=== PATIENT | male | born 1980 | race Caucasian/White ===

== ENCOUNTER 2016-08-21 18:08 | Emergency (ER) | payer OTHER ==
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
[2016-08-21] MEDS ORDERED: KETOROLAC TROMETHAMINE 60 MG/2 ML VIAL IM ONE (18:19)
[2016-08-21 18:25] VITALS: BP 163/100; PULSE 106; TEMP 98.7; BMI 36.9
[2016-08-21] MEDS ORDERED: KETOROLAC TROMETHAMINE 60 MG/2 ML VIAL ONE (18:35)
[2016-08-21] MEDS ORDERED: DIPHTH,PERTUSS(ACELL),TET 0.5 ML DISP.SYRIN IM ONE (18:50)
== END 2016-08-21 19:10 | disposition home or self-care (01) ==
LOC: FER 18:08
PROC: 3E0234Z Introduction of Serum, Toxoid and Vaccine into Muscle, Percutaneous Approach (ICD-10-PCS; principal; 2016-08-21)
PROC: 3E0233Z Introduction of Anti-inflammatory into Muscle, Percutaneous Approach (ICD-10-PCS; 2016-08-21)
DX: S20.212A Contusion of left front wall of thorax, initial encounter (principal); S00.81XA Abrasion of other part of head, initial encounter; S70.12XA Contusion of left thigh, initial encounter; W05.1XXA Fall from non-moving nonmotorized scooter, initial encounter; Y93.55 Activity, bike riding; Y92.410 Unspecified street and highway as the place of occurrence of the external cause; F17.210 Nicotine dependence, cigarettes, uncomplicated
CPT/HCPCS: 71020-TC; 71101-TC; 90471; 90715; 96372; 99283-25

== ENCOUNTER 2017-01-10 18:29 | Inpatient (IN) | payer OTHER ==
[2017-01-10 19:03] VITALS: BMI 36.9
--- NOTE | 2017-01-10 20:49 | HP ---
CIWA Score - CIWA Score Nausea/Vomitin Muscle Tremors: 4-Moderate,w/Arms Extend Anxiety: 6 Agitation: 6 Paroxysmal Sweats: 3 Orientation: 1-Uncertain about Date Tacttile Disturbances: 3-Moderate Itch/Numb/Burn Auditory Disturbances: 0-None Visual Disturbances: 3-Moderate Sensitivity Headache: 2-Mild CIWA-Ar Total Score: 31 Admission ROS BHS - HPI Chief Complaint: SEEKING DETOX TXMENT Allergies/Adverse Reactions: Allergies Allergy/AdvReac Type Severity Reaction Status Date / Time No Known Allergies Allergy Verified 01/10/17 20:20 History of Present Illness: 36 Y.O. MALE WITH OPIOID DEPENDENCE AND ALCOHOLISM ADMITTED FOR DETOX. CLIENT IS CURRENTLY TAKING SUBOXONE 20 MG/ DAILY. PRESENTS RX BOTTLE. REPORTS FIRST TIME IN TXMENT. HE IS PRESENTLY INTOXICATED, BELLIGERENT AND NOT COOPERATIVE WITH THE INTERVIEW. Exam Limitations: Intoxication - Ebola screening Have you traveled outside of the country in the last 21 days: No Have you had contact with anyone from an Ebola affected area: No Have you been sick,other than usual withdrawal symptoms: No Do you have a fever: No - Review of Systems Constitutional: Chills, Night Sweats EENT: reports: Dental Problems Respiratory: reports: No Symptoms reported Cardiac: reports: No Symptoms Reported GI: reports: Nausea, Poor Fluid Intake, Vomiting : reports: Frequency Musculoskeletal: reports: No Symptoms Reported Integumentary: reports: Flushing, Sweating Neuro: reports: No Symptoms reported Endocrine: reports: No Symptoms Reported Hematology: reports: No Symptoms Reported Psychiatric: reports: Agitated, Anxious, Disorientated Other Systems: Reviewed and Negative Patient History - Patient Medical History Hx Anemia: No Hx Asthma: Yes (ALBUTEROL) Hx Chronic Obstructive Pulmonary Disease (COPD): No Hx Cancer: No Hx Cardiac Disorders: No Hx Congestive Heart Failure: No Hx Hypertension: No Hx Hypercholesterolemia: No Hx Pacemaker: No HX Cerebrovascular Accident: No Hx Seizures: Yes (ALCOHOL RELATED) Hx Dementia: No Hx Diabetes: No Hx Gastrointestinal Disorders: No Hx Liver Disease: No Hx Genitourinary Disorders: No Hx Sexually Transmitted Disorders: No Hx Renal Disease (ESRD): No Hx Thyroid Disease: No Hx Human Immunodeficiency Virus (HIV): No Hx Hepatitis C: No Hx Depression: Yes Hx Suicide Attempt: No Hx Bipolar Disorder: No Hx Schizophrenia: No Other Medical History: DENIES - Patient Surgical History Past Surgical History: Yes Hx Orthopedic Surgery: Yes (L HAND L FOOT SX) Anesthesia Reaction: No - PPD History Previous Implant?: Yes Documented Results: Negative w/o proof Implanted On Prior [facility] Admission?: No PPD to be Administered?: Yes - Smoking Cessation Smoking history: Current every day smoker Have you smoked in the past 12 months: Yes Aproximately how many cigarettes per day: 30 Cigars Per Day: 0 Hx Chewing Tobacco Use: No Initiated information on smoking cessation: Yes 'Breaking Loose' booklet given: 01/10/17 - Substance & Tx. History Hx Alcohol Use: Yes Hx Substance Use: No Substance Use Type: Alcohol Hx Substance Use Treatment: Yes - Substances Abused LIQUOR Route: Oral Frequency: Daily Amount used: 4-6 PINTS Age of first use: 12 Date of Last Use: 01/10/17 Family Disease History - Family Disease History Family Disease History: Diabetes: Father (ALCOHOLISM), CA: Father, Other: Father , Mother (ALCOHOLISM CIRRHOSIS) Admission Physical Exam BHS - Vital Signs Vital Signs: Vital Signs - 24 hr 01/10/17 19:01 Temperature 97.8 F Pulse Rate 100 H Respiratory 18 Rate Blood Pressure 157/70 - Physical General Appearance: Yes: Moderate Distress, Intoxicated, Tremorous, Irritable, Sweating, Anxious, Other (CRYING) HEENTM: Yes: EOMI, Normocephalic, Pharynx Normal, Nasal Congestion, Rhinorrhea, Other (NASAL DEFORMITY MISSING TEETH) Respiratory: Yes: Chest Non-Tender, Lungs Clear, Normal Breath Sounds, No Respiratory Distress, No Accessory Muscle Use Neck: Yes: No masses,lesions,Nodules, Supple, Trachea in good position Breast: Yes: Breast Exam Deferred Cardiology: Yes: Regular Rhythm, S1, S2, Tachycardia Abdominal: Yes: Normal Bowel Sounds, Non Tender, Soft Genitourinary: Yes: Within Normal Limits Back: Yes: Normal Inspection Musculoskeletal: Yes: full range of Motion, Gait Steady Extremities: Yes: Normal Range of Motion, Non-Tender, Tremors, Other (L FIFTH DIGIT DEFORMITY) Neurological: Yes: bulk pigment reducer II-XII NML intact, Alert, Motor Strength 5/5 Integumentary: Yes: Warm, Moist Lymphatic: Yes: Within Normal Limits - Diagnostic (1) Alcohol dependence with uncomplicated withdrawal Current Visit: Yes Status: Chronic (2) Opioid dependence on agonist therapy Current Visit: Yes Status: Chronic (3) Nicotine dependence Current Visit: Yes Status: Chronic Qualifiers: Nicotine product type: cigarettes Substance use status: uncomplicated Qualified Code(s): F17.210 - Nicotine dependence, cigarettes, uncomplicated (4) Asthma Current Visit: Yes Status: Acute Qualifiers: Asthma severity: mild intermittent Cleared for Admission S - Detox or Rehab S Level of Care: Medically Managed Detox Regimen/Protocol: Librium BHS Breath Alcohol Content Breath Alcohol Content: 0.325 Urine Drug Screen - Results Drug Screen Negative: Yes
[2017-01-10] MEDS ORDERED: P-EPHED 60MG/TRIPROLIDI 2.5MG TABLET PO PRN (22:23)
[2017-01-10] MEDS ORDERED: MAGNESIUM CITRATE 300 ML BOTTLE PO PRN (22:23)
[2017-01-10] MEDS ORDERED: LOPERAMIDE HCL 2 MG CAPSULE PO PRN (22:23)
[2017-01-10] MEDS ORDERED: IBUPROFEN 400 MG TABLET (FP) PO PRN (22:23)
[2017-01-10] MEDS ORDERED: MENTHOL/PHENOL 1 EACH UD MM PRN (22:23)
[2017-01-10] MEDS ORDERED: NICOTINE POLACRILEX 4 MG GUM BC PRN (22:23)
[2017-01-10] MEDS ORDERED: MAGNESIUM HYDROX 2400MG/30ML ORAL SUSPENSION 30 ML CUP PO PRN (22:23)
[2017-01-10] MEDS ORDERED: ACETAMINOPHEN 325 MG TABLET (FP) PO PRN (22:23)
[2017-01-10] MEDS ORDERED: guaiFENesin/D-METHORPHAN HB 10 ML UNIT-DOSE CUPS PO PRN (22:23)
[2017-01-11] MEDS: chlordiazePOXIDE HCL 25 MG CAPSULE PO SCH ×5 (00:23→22:17)
[2017-01-11] MEDS: diphenhydrAMINE HCL 50 MG CAPSULE PO PRN ×2 (00:23→01:55)
[2017-01-11 00:37] LABS: URINE APPEARANCE CLEAR; URINE BILIRUBIN NEGATIVE (NEGATIVE); URINE BLOOD 1+ (NEGATIVE); URINE COLOR STRAW; URINE GLUCOSE (UA) NEGATIVE (NEGATIVE); URINE KETONE NEGATIVE (NEGATIVE); URINE LEUK ESTERASE NEGATIVE (NEGATIVE); URINE NITRITE NEGATIVE (NEGATIVE); URINE PROTEIN NEGATIVE (NEGATIVE); URINE UROBILINOGEN NEGATIVE mg/dL (0.2-1.0)
[2017-01-11 00:38] LABS: URINE MUCUS RARE; URINE RBC 2 /hpf (0-3); URINE WBC 1 /hpf (3-5)
[2017-01-11] MEDS ORDERED: ALBUTEROL SO4 2.5/IPRATROPIUM 0.5 INH SOL 3 ML VIAL.NEB. NEB PRN (05:31)
[2017-01-11] MEDS ORDERED: ALBUTEROL SO4 6.7 GM HFA INHALER IH PRN (08:26)
[2017-01-11 09:50] LABS: MCH 32.3 pg (25.7-33.7); MCHC 34.3 g/dl (32.0-35.9); MEAN PLT VOLUME 7.8 fl (7.5-11.1); PLATELET COUNT 150 K/MM3 (134-434); RDW 13.4 % (11.9-15.9); WHITE BLOOD COUNT 7.4 K/mm3 (4.0-10.0)
[2017-01-11] MEDS: PRENATAL VITAMINS W/ FOLIC ACID TABLET (FP) PO SCH (10:20)
[2017-01-11] MEDS: BUPRENORPHINE/NALOXONE 8 MG/2 MG FILM PACKET SL SCH ×2 (10:20→17:36)
[2017-01-11] MEDS: NICOTINE 21 MG/24 HOURS TOPICAL PATCH TD SCH (10:21)
[2017-01-11 10:23] LABS: ALBUMIN 3.4 g/dl (3.4-5.0); ALK PHOS 161 U/L (45-117); ANION GAP 8 (8-16); BILIRUBIN,TOTAL 0.7 mg/dL (0.2-1.0); CALCIUM 8.7 mg/dL (8.5-10.1); CO2 29 mmol/L (21-32); CREATININE 0.8 mg/dL (0.7-1.3); GLUCOSE,RANDOM 81 mg/dL (74-106); SGOT/AST 52 U/L (15-37); SGPT/ALT 58 U/L (12-78); TOT PROT 6.9 g/dl (6.4-8.2)
--- NOTE | 2017-01-11 12:14 | PN ---
S CIWA - CIWA Score Nausea/Vomitin Muscle Tremors: 5 Anxiety: 5 Agitation: 4-Moderately Restless Paroxysmal Sweats: 3 Orientation: 0-Oriented Tacttile Disturbances: 1-Very Mild Itch/Numbness Auditory Disturbances: 0-None Visual Disturbances: 0-None Headache: 0-None Present CIWA-Ar Total Score: 21 BHS Progress Note (SOAP) Subjective: Anxiety,tremors,sweating,interrupted sleep,restless Objective: 01/11/17 12:13 Vital Signs - 8 hr 01/11/17 01/11/17 06:25 11:12 Temperature 97.9 F 97.9 F Pulse Rate 67 84 Respiratory 20 20 Rate Blood Pressure 146/87 149/88 Laboratory Tests 01/10/17 01/11/17 01/11/17 23:42 07:50 07:50 WBC 7.4 RBC 4.53 Hgb 14.6 Hct 42.6 MCV 94.0 MCH 32.3 MCHC 34.3 RDW 13.4 Plt Count 150 MPV 7.8 Sodium 138 Potassium 3.3 L Chloride 101 Carbon Dioxide 29 Anion Gap 8 BUN 17 Creatinine 0.8 Creat Clearance w eGFR > 60 Random Glucose 81 Calcium 8.7 Total Bilirubin 0.7 AST 52 H ALT 58 Alkaline Phosphatase 161 H Total Protein 6.9 Albumin 3.4 Urine Color Straw Urine Appearance Clear Urine pH 6.0 Ur Specific [place] 1.010 Urine Protein Negative Urine Glucose (UA) Negative Urine Ketones Negative Urine Blood 1+ H Urine Nitrite Negative Urine Bilirubin Negative Urine Urobilinogen Negative Urine RBC 2 Urine WBC 1 Urine Mucus Rare labs note K+ 3.3, start k-dur Assessment: 01/11/17 12:13 Withdrawal sx Hypokalemia Plan: Continue detox
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
[2017-01-11] MEDS ORDERED: chlordiazePOXIDE HCL 25 MG CAPSULE PO ONE (14:00)
[2017-01-11] MEDS: POTASSIUM CHLORIDE TABS 20 MEQ TABLET.ER (FP) PO SCH ×2 (14:20→22:18)
[2017-01-11] MEDS ORDERED: BUPRENORPHINE/NALOXONE 2 MG/0.5 MG FILM PACKET SL SCH (22:00)
[2017-01-11] MEDS: hydrOXYzine PAMOATE 50 MG CAPSULE (FP) PO PRN (22:17)
[2017-01-11] MEDS: BUPRENORPHINE/NALOXONE 2 MG/0.5 MG FILM PACKET SL SCH (22:18)
[2017-01-11] MEDS: THIAMINE HCL 100 MG TABLET (FP) PO SCH (22:18)
[2017-01-12] MEDS: chlordiazePOXIDE HCL 25 MG CAPSULE PO SCH ×3 (05:31→17:15)
[2017-01-12] MEDS: POTASSIUM CHLORIDE TABS 20 MEQ TABLET.ER (FP) PO SCH ×2 (10:05→22:33)
[2017-01-12] MEDS: BUPRENORPHINE/NALOXONE 8 MG/2 MG FILM PACKET SL SCH ×2 (10:05→17:20)
[2017-01-12] MEDS: PRENATAL VITAMINS W/ FOLIC ACID TABLET (FP) PO SCH (10:05)
[2017-01-12] MEDS: NICOTINE 21 MG/24 HOURS TOPICAL PATCH TD SCH (10:06)
[2017-01-12] MEDS: chlordiazePOXIDE HCL 25 MG CAPSULE PO PRN (12:45)
--- NOTE | 2017-01-12 14:50 | PN ---
[facility] CIWA - CIWA Score Nausea/Vomitin-No Nausea/No Vomiting Muscle Tremors: 5 Anxiety: 5 Agitation: 4-Moderately Restless Paroxysmal Sweats: No Perspiration Orientation: 0-Oriented Tacttile Disturbances: 2-Mild Itch/Numbness/Burn Auditory Disturbances: 0-None Visual Disturbances: 3-Moderate Sensitivity Headache: 0-None Present CIWA-Ar Total Score: 19 S Progress Note (SOAP) Subjective: Interrupted Sleep, Body Aches, Tremors, Anxious. Objective: PT. A & O X 3, OBSERVED AMBULATING ON UNIT. NO ACUTE DISTRESS. 01/12/17 14:48 Vital Signs Temperature 98.4 F 01/12/17 10:31 Pulse Rate 79 01/12/17 10:31 Respiratory Rate 18 01/12/17 10:31 Blood Pressure 124/79 01/12/17 10:31 O2 Sat by Pulse Oximetry (%) Laboratory Tests 01/10/17 01/11/17 01/11/17 23:42 07:50 07:50 WBC 7.4 RBC 4.53 Hgb 14.6 Hct 42.6 MCV 94.0 MCH 32.3 MCHC 34.3 RDW 13.4 Plt Count 150 MPV 7.8 Sodium 138 Potassium 3.3 L Chloride 101 Carbon Dioxide 29 Anion Gap 8 BUN 17 Creatinine 0.8 Creat Clearance w eGFR > 60 Random Glucose 81 Calcium 8.7 Total Bilirubin 0.7 AST 52 H ALT 58 Alkaline Phosphatase 161 H Total Protein 6.9 Albumin 3.4 Urine Color Straw Urine Appearance Clear Urine pH 6.0 Ur Specific [place] 1.010 Urine Protein Negative Urine Glucose (UA) Negative Urine Ketones Negative Urine Blood 1+ H Urine Nitrite Negative Urine Bilirubin Negative Urine Urobilinogen Negative Urine RBC 2 Urine WBC 1 Urine Mucus Rare RPR Titer 01/11/17 07:50 WBC RBC Hgb Hct MCV MCH MCHC RDW Plt Count MPV Sodium Potassium Chloride Carbon Dioxide Anion Gap BUN Creatinine Creat Clearance w eGFR Random Glucose Calcium Total Bilirubin AST ALT Alkaline Phosphatase Total Protein Albumin Urine Color Urine Appearance Urine pH Ur Specific [place] Urine Protein Urine Glucose (UA) Urine Ketones Urine Blood Urine Nitrite Urine Bilirubin Urine Urobilinogen Urine RBC Urine WBC Urine Mucus RPR Titer Nonreactive LABS NOTED. Assessment: 01/12/17 14:49 WITHDRAWAL SYMPTOMS. HYPOKALEMIA. 01/12/17 14:53 Plan: CONTINUE DETOX. REPEAT UA FOR URINE BLOOD 1+. REPEAT ALK PHOS FOR ELEVATED ADMISSION VALUE. INCREASE DAILY PO FLUID INTAKE.
[2017-01-12] MEDS: ZOLPIDEM TARTRATE 10 MG TABLET (PARK CARE ONLY) PO PRN (22:33)
[2017-01-12] MEDS: THIAMINE HCL 100 MG TABLET (FP) PO SCH (22:33)
[2017-01-12] MEDS: chlordiazePOXIDE 5 MG CAPSULE PO SCH (22:33)
[2017-01-12] MEDS: BUPRENORPHINE/NALOXONE 2 MG/0.5 MG FILM PACKET SL SCH (22:33)
[2017-01-12 22:57] LABS: URINE APPEARANCE CLEAR; URINE BILIRUBIN NEGATIVE (NEGATIVE); URINE BLOOD NEGATIVE (NEGATIVE); URINE COLOR YELLOW; URINE GLUCOSE (UA) NEGATIVE (NEGATIVE); URINE KETONE NEGATIVE (NEGATIVE); URINE LEUK ESTERASE NEGATIVE (NEGATIVE); URINE NITRITE NEGATIVE (NEGATIVE); URINE PROTEIN NEGATIVE (NEGATIVE); URINE UROBILINOGEN NEGATIVE mg/dL (0.2-1.0)
[2017-01-13] MEDS: chlordiazePOXIDE HCL 25 MG CAPSULE PO PRN ×3 (01:02→14:54)
[2017-01-13] MEDS: chlordiazePOXIDE 5 MG CAPSULE PO SCH ×3 (05:49→17:43)
[2017-01-13] MEDS: MAG HYDROX/AL HYDROX/SIMETH 30 ML UNIT-DOSE CUP PO PRN (05:53)
[2017-01-13] MEDS: NICOTINE 21 MG/24 HOURS TOPICAL PATCH TD SCH (10:26)
[2017-01-13] MEDS: BUPRENORPHINE/NALOXONE 8 MG/2 MG FILM PACKET SL SCH ×2 (10:26→17:42)
[2017-01-13] MEDS: PRENATAL VITAMINS W/ FOLIC ACID TABLET (FP) PO SCH (10:26)
[2017-01-13] MEDS: POTASSIUM CHLORIDE TABS 20 MEQ TABLET.ER (FP) PO SCH ×2 (10:26→22:07)
[2017-01-13] MEDS ORDERED: cloNIDine HCL 0.1 MG TABLET PO PRN (10:41)
[2017-01-13] MEDS: hydrOXYzine PAMOATE 50 MG CAPSULE (FP) PO PRN (14:57)
--- NOTE | 2017-01-13 17:33 | PN ---
BHS Progress Note (SOAP) Subjective: Tremors (visible), chills, nausea, interrupted sleep Objective: 01/13/17 17:29 Last Vital Signs Temp Pulse Resp BP Pulse Ox 97.6 F 84 18 120/72 01/13/17 13:41 01/13/17 13:41 01/13/17 13:41 01/13/17 13:41 Laboratory Tests 01/10/17 01/11/17 01/11/17 23:42 07:50 07:50 WBC 7.4 RBC 4.53 Hgb 14.6 Hct 42.6 MCV 94.0 MCH 32.3 MCHC 34.3 RDW 13.4 Plt Count 150 MPV 7.8 Sodium 138 Potassium 3.3 L Chloride 101 Carbon Dioxide 29 Anion Gap 8 BUN 17 Creatinine 0.8 Creat Clearance w eGFR > 60 Random Glucose 81 Calcium 8.7 Total Bilirubin 0.7 AST 52 H ALT 58 Alkaline Phosphatase 161 H Total Protein 6.9 Albumin 3.4 Urine Color Straw Urine Appearance Clear Urine pH 6.0 Ur Specific [place] 1.010 Urine Protein Negative Urine Glucose (UA) Negative Urine Ketones Negative Urine Blood 1+ H Urine Nitrite Negative Urine Bilirubin Negative Urine Urobilinogen Negative Urine RBC 2 Urine WBC 1 Urine Mucus Rare RPR Titer 01/11/17 01/12/17 01/13/17 07:50 22:45 07:30 WBC RBC Hgb Hct MCV MCH MCHC RDW Plt Count MPV Sodium Potassium Chloride Carbon Dioxide Anion Gap BUN Creatinine Creat Clearance w eGFR Random Glucose Calcium Total Bilirubin AST ALT Alkaline Phosphatase 161 H Total Protein Albumin Urine Color Yellow Urine Appearance Clear Urine pH 7.0 Ur Specific [place] 1.020 Urine Protein Negative Urine Glucose (UA) Negative Urine Ketones Negative Urine Blood Negative Urine Nitrite Negative Urine Bilirubin Negative Urine Urobilinogen Negative Urine RBC Urine WBC Urine Mucus RPR Titer Nonreactive Labs noted: K 3.3, UA: 1+ blood Assessment: 01/13/17 17:30 Withdrawal symptoms, noted with visible tremors Noted with hypokalemia and microscopic hematuria Plan: Continue detox: (visible tremors) patient encouraged to request prn librium and vistaril, ordered for clonidine 0.1mg PO q8hr prn Hypokalemia: continue PO potassium supplement Microscopic hematuria: encouraged to drink lots of water, repeat UA
[2017-01-13] MEDS: BUPRENORPHINE/NALOXONE 2 MG/0.5 MG FILM PACKET SL SCH (22:06)
[2017-01-13] MEDS: THIAMINE HCL 100 MG TABLET (FP) PO SCH (22:06)
[2017-01-13] MEDS: ZOLPIDEM TARTRATE 10 MG TABLET (PARK CARE ONLY) PO PRN (22:07)
[2017-01-13] MEDS: chlordiazePOXIDE HCL 10 MG CAPSULE PO SCH (22:07)
[2017-01-14] MEDS: diphenhydrAMINE HCL 50 MG CAPSULE PO PRN (01:13)
[2017-01-14] MEDS: hydrOXYzine PAMOATE 50 MG CAPSULE (FP) PO PRN ×2 (01:13→09:47)
[2017-01-14] MEDS: chlordiazePOXIDE HCL 10 MG CAPSULE PO SCH ×2 (05:18→10:35)
[2017-01-14 06:00] VITALS: BP 110/74; PULSE 88; TEMP 96.9
[2017-01-14] MEDS: MAG HYDROX/AL HYDROX/SIMETH 30 ML UNIT-DOSE CUP PO PRN (06:38)
[2017-01-14] MEDS: PRENATAL VITAMINS W/ FOLIC ACID TABLET (FP) PO SCH (09:47)
[2017-01-14] MEDS: NICOTINE 21 MG/24 HOURS TOPICAL PATCH TD SCH (09:48)
[2017-01-14] MEDS: BUPRENORPHINE/NALOXONE 8 MG/2 MG FILM PACKET SL SCH (09:49)
[2017-01-14 09:51] LABS: URINE APPEARANCE CLEAR; URINE BILIRUBIN NEGATIVE (NEGATIVE); URINE BLOOD NEGATIVE (NEGATIVE); URINE COLOR LTYELLOW; URINE GLUCOSE (UA) NEGATIVE (NEGATIVE); URINE KETONE NEGATIVE (NEGATIVE); URINE NITRITE NEGATIVE (NEGATIVE); URINE PROTEIN NEGATIVE (NEGATIVE); URINE UROBILINOGEN NEGATIVE mg/dL (0.2-1.0)
[2017-01-14] MEDS: POTASSIUM CHLORIDE TABS 20 MEQ TABLET.ER (FP) PO SCH (09:54)
--- NOTE | 2017-01-14 12:30 | DS ---
[facility] Detox Discharge Summary Admission Date: 01/10/17 Discharge Date: 01/14/17 - History Present History: Alcohol Dependence, Opioid Dependence Additional Comments: PATIENT ELECTING TO GO HOME AT THIS TIME. PATIENT REPORTS THAT HE WILL ATTEND [facility] SUBSTANCE USE OUTPATIENT TREATMENT PROGRAM ([facility] [place] [facility] FOR AFTERCARE. PATIENT ALSO ADVISED TO FOLLOW-UP WITH MEDICAL PROVIDER DR. LEANNE DIAZ ([facility] [place] FOR FOLLOW-UP CARE FOR HISTORY OF SUBOXONE MAINTENANCE THERAPY. PATIENT VERBALIZED UNDERSTANDING OF ALL INSTRUCTIONS. PATIENT WAS DISCHARGED FROM DETOX UNIT IN STABLE MEDICAL CONDITION. Pertinent Past History: Asthma, Suboxone Maintenance, History of Seizures (Alcohol-Related), Depression , Nicotine Dependence. - Physical Exam Results Vital Signs: Vital Signs Temperature 96.9 F L 01/14/17 05:59 Pulse Rate 88 01/14/17 05:59 Respiratory Rate 18 01/14/17 05:59 Blood Pressure 110/74 01/14/17 05:59 O2 Sat by Pulse Oximetry (%) Pertinent Admission Physical Exam Findings: WITHDRAWAL SYMPTOMS. Laboratory Tests 01/10/17 01/11/17 01/11/17 23:42 07:50 07:50 WBC 7.4 RBC 4.53 Hgb 14.6 Hct 42.6 MCV 94.0 MCH 32.3 MCHC 34.3 RDW 13.4 Plt Count 150 MPV 7.8 Sodium 138 Potassium 3.3 L Chloride 101 Carbon Dioxide 29 Anion Gap 8 BUN 17 Creatinine 0.8 Creat Clearance w eGFR > 60 Random Glucose 81 Calcium 8.7 Total Bilirubin 0.7 AST 52 H ALT 58 Alkaline Phosphatase 161 H Total Protein 6.9 Albumin 3.4 Urine Color Straw Urine Appearance Clear Urine pH 6.0 Ur Specific [place] 1.010 Urine Protein Negative Urine Glucose (UA) Negative Urine Ketones Negative Urine Blood 1+ H Urine Nitrite Negative Urine Bilirubin Negative Urine Urobilinogen Negative Urine RBC 2 Urine WBC 1 Urine Mucus Rare RPR Titer 01/11/17 01/12/17 01/13/17 07:50 22:45 07:30 WBC RBC Hgb Hct MCV MCH MCHC RDW Plt Count MPV Sodium Potassium Chloride Carbon Dioxide Anion Gap BUN Creatinine Creat Clearance w eGFR Random Glucose Calcium Total Bilirubin AST ALT Alkaline Phosphatase 161 H Total Protein Albumin Urine Color Yellow Urine Appearance Clear Urine pH 7.0 Ur Specific [place] 1.020 Urine Protein Negative Urine Glucose (UA) Negative Urine Ketones Negative Urine Blood Negative Urine Nitrite Negative Urine Bilirubin Negative Urine Urobilinogen Negative Urine RBC Urine WBC Urine Mucus RPR Titer Nonreactive 01/14/17 08:00 WBC RBC Hgb Hct MCV MCH MCHC RDW Plt Count MPV Sodium Potassium Chloride Carbon Dioxide Anion Gap BUN Creatinine Creat Clearance w eGFR Random Glucose Calcium Total Bilirubin AST ALT Alkaline Phosphatase Total Protein Albumin Urine Color [place] Urine Appearance Clear Urine pH 7.0 Ur Specific [place] Urine Protein Negative Urine Glucose (UA) Negative Urine Ketones Negative Urine Blood Negative Urine Nitrite Negative Urine Bilirubin Negative Urine Urobilinogen Negative Urine RBC Urine WBC Urine Mucus RPR Titer LABS NOTED. - Treatment Hospital Course: Detox Protocol Followed, Detoxed Safely, Responded well, Discharged Condition Good Patient has Accepted a Rehab Referral to: NO. WILL ATTEND NEW FOCUS PROGRAM; WILL CONTINUE SUBOXONE MAINTENANCE. - Diagnosis (1) Substance induced mood disorder Status: Acute (2) Substance-induced sleep disorder Status: Acute (3) Alcohol dependence with uncomplicated withdrawal Status: Acute (4) Asthma Status: Chronic Qualifiers: Asthma severity: mild intermittent Asthma complication type: uncomplicated Qualified Code(s): J45.20 - Mild intermittent asthma, uncomplicated (5) Nicotine dependence Status: Chronic Qualifiers: Nicotine product type: cigarettes Substance use status: uncomplicated Qualified Code(s): F17.210 - Nicotine dependence, cigarettes, uncomplicated (6) Opioid dependence on agonist therapy Status: Chronic - AMA Did Patient Leave Against Medical Advice: No
--- NOTE | 2017-01-14 17:04 | EKG ---
Test Reason : Blood Pressure : / mmHG Vent. Rate : 094 BPM Atrial Rate : 094 BPM P-R Int : 160 ms QRS Dur : 096 ms QT Int : 360 ms P-R-T Axes : 060 -16 033 degrees QTc Int : 450 ms NORMAL SINUS RHYTHM POSSIBLE LEFT ATRIAL ENLARGEMENT INCOMPLETE RIGHT BUNDLE BRANCH BLOCK BORDERLINE ECG NO PREVIOUS ECGS AVAILABLE Confirmed by TREY BOWSER MD ([id number]) on 01/14/2017 5:03:59 PM Referred By: Angel Adams Confirmed By:TREY BOWSER MD
== END 2017-01-14 10:00 | disposition home or self-care (01) | DRG 773 ==
LOC: YASAS 18:29 → Y3N 22:20
PROVIDERS: ADMIT Internal Medicine; ATTEND Internal Medicine
PROC: HZ2ZZZZ Detoxification Services for Substance Abuse Treatment (ICD-10-PCS; principal; 2017-01-10)
DX: F11.20 Opioid dependence, uncomplicated (principal); F10.230 Alcohol dependence with withdrawal, uncomplicated; F17.210 Nicotine dependence, cigarettes, uncomplicated; F19.282 Other psychoactive substance dependence with psychoactive substance-induced sleep disorder; F19.24 Other psychoactive substance dependence with psychoactive substance-induced mood disorder; J45.20 Mild intermittent asthma, uncomplicated; G40.509 Epileptic seizures related to external causes, not intractable, without status epilepticus
CPT/HCPCS: 36415; 80053; 81003; 81015; 84075; 85027; 86593; 93005; 93010; 94640

== ENCOUNTER 2017-05-15 02:05 | Emergency (ER) | payer OTHER ==
[2017-05-15] MEDS ORDERED: KETOROLAC TROMETHAMINE 30 MG/1 ML VIAL IVPUSH ONE (02:41)
[2017-05-15] MEDS ORDERED: ONDANSETRON 4 MG/2 ML VIAL IVPUSH STA ×2 (02:41→06:10)
--- NOTE | 2017-05-15 02:41 | PDOC ---
History of Present Illness - General History Source: Patient Exam Limitations: No Limitations - History of Present Illness Initial Comments: 05/15/17 02:47 The patient is a 36 year old male, with a significant past medical history of asthma (uses albuterol as needed), opioid and ETOH dependence (last detox ), alcohol related seizures, and depression, who presents to the emergency department via ems for complaint of generalized weakness, fever, chills, nausea , vomiting, and diarrhea for 2 days. He denies noticing blood in his emesis or stool. He states he does not think this is his typical withdrawal. He denies chest pain, shortness of breath, headache and dizziness. He denies constipation. He denies dysuria, frequency, urgency and hematuria. Allergies: NKDA <Sun Mcgrath - Last Filed: 05/15/17 02:46> - General History Source: Patient <RafiRanjeet gonzales - Last Filed: 05/15/17 19:39> - General Chief Complaint: Pain, Acute Stated Complaint: ABD PAIN Time Seen by Provider: 05/15/17 02:40 Past History <Sun Mcgrath - Last Filed: 05/15/17 02:46> - Past Medical History Anemia: No Asthma: Yes Cancer: No Cardiac Disorders: No CVA: No COPD: No CHF: No Dementia: No Diabetes: No GI Disorders: No Disorders: No HTN: No Hypercholesterolemia: No Kidney Stones: No Liver Disease: No Seizures: Yes (etoh related) Thyroid Disease: No - Surgical History Orthopedic Surgery: Yes (L HAND L FOOT SX) - Reproductive History Testicular Surgery: No - Suicide/Smoking/Psychosocial Hx Smoking History: Current every day smoker Have you smoked in the past 12 months: Yes Number of Cigarettes Smoked Daily: 30 Cigars Per Day: 0 Information on smoking cessation initiated: No 'Breaking Loose' booklet given: 01/10/17 Hx Alcohol Use: Yes Drug/Substance Use Hx: No Substance Use Type: Alcohol Hx Substance Use Treatment: No <Ranjeet Cadet - Last Filed: 05/15/17 19:39> - Past Medical History Allergies/Adverse Reactions: Allergies Allergy/AdvReac Type Severity Reaction Status Date / Time No Known Allergies Allergy Verified 05/15/17 02:35 Home Medications: Ambulatory Orders Buprenorphine/Naloxone [Suboxone 8Mg/2Mg Sl Film -] 1 each SL DAILY 05/15/17 Cyclobenzaprine HCl [Flexeril 10 mg] 10 mg PO BID PRN 05/15/17 Fluoxetine HCl [Prozac] mg PO DAILY 05/15/17 Gabapentin [Neurontin] mg PO BID 05/15/17 Naproxen [Naprosyn -] 500 mg PO BID 05/15/17 Ondansetron [Zofran *Odt*] 8 mg SL BID PRN #10 od.tablet 05/15/17 Review of Systems - Review of Systems Able to Perform ROS?: Yes Comments:: 05/15/17 02:47 CONSTITUTIONAL: (+) chills,generalized weakness, malaise, Absent: fever, diaphoresis,loss of appetite HEENT: Absent: rhinorrhea, nasal congestion, throat pain, throat swelling, difficulty swallowing, mouth swelling, ear pain, eye pain, visual Changes CARDIOVASCULAR: Absent: chest pain, syncope, palpitations, irregular heart rate, lightheadedness , peripheral edema RESPIRATORY: Absent: cough, shortness of breath, dyspnea with exertion, orthopnea, wheezing, stridor, hemoptysis GASTROINTESTINAL: (+) nausea, vomiting, diarrhea, Absent: abdominal pain, abdominal distension, constipation, melena, hematochezia GENITOURINARY: Absent: dysuria, frequency, urgency, hesitancy, hematuria, flank pain, genital pain MUSCULOSKELETAL: (+) diffuse body aches. Absent: arthralgia, joint swelling SKIN: Absent: rash, itching, pallor HEMATOLOGIC/IMMUNOLOGIC: Absent: easy bleeding, easy bruising, lymphadenopathy, frequent infections ENDOCRINE: Absent: unexplained weight gain, unexplained weight loss, heat intolerance, cold intolerance NEUROLOGIC: Absent: headache, focal weakness or paresthesias, dizziness, unsteady gait, seizure, mental status changes, bladder or bowel incontinence PSYCHIATRIC: Absent: anxiety, depression, suicidal or homicidal ideation, hallucinations. <Sun Mcgrath - Last Filed: 05/15/17 02:46> *Physical Exam - Vital Signs Last Vital Signs Temp Pulse Resp BP Pulse Ox 98.2 F 100 H 18 115/83 97 05/15/17 02:33 05/15/17 02:33 05/15/17 02:33 05/15/17 02:33 05/15/17 02:33 - Physical Exam Comments: 05/15/17 02:48 GENERAL: (+) in moderate distress. Obese. Awake and alert HEENT: Normocephalic, atraumatic. PERRLA, EOMI. No conjunctival pallor. Sclera are non- icteric. Moist mucous membranes. Oropharynx is clear. NECK: Supple. Full ROM. No JVD. Carotid pulses 2+ and symmetric, without bruits. No thyromegaly. No lymphadenopathy. CARDIOVASCULAR: Regular rate and rhythm. No murmurs, rubs, or gallops. Distal pulses are 2+ and symmetric. PULMONARY: No evidence of respiratory distress. Lungs clear to auscultation bilaterally. No wheezing, rales or rhonchi. ABDOMINAL: Soft. Non-tender. Non-distended. No rebound or guarding. No organomegaly. Normoactive bowel sounds. MUSCULOSKELETAL Normal range of motion at all joints. No bony deformities or tenderness. No CVA tenderness. EXTREMITIES: No cyanosis. No clubbing. No edema. No calf tenderness. SKIN: Warm and dry. Normal capillary refill. No rashes. No jaundice. NEUROLOGICAL: Alert, awake, appropriate. Cranial nerves 2-12 intact. Normoreflexic in the upper and lower extremities. Normal speech. Toes are down-going bilaterally. Gait is normal without ataxia. PSYCHIATRIC: Cooperative. Good eye contact. Appropriate mood and affect. ADULT COMPREHENSIVE ROS <Sun Mcgrath - Last Filed: 05/15/17 02:46> - Vital Signs Last Vital Signs Temp Pulse Resp BP Pulse Ox 98.2 F 100 H 18 115/83 97 05/15/17 02:33 05/15/17 02:33 05/15/17 02:33 05/15/17 02:33 05/15/17 02:33 <Ranjeet Cadet - Last Filed: 05/15/17 19:39> ED Treatment Course - LABORATORY CBC & Chemistry Diagram: 05/15/17 03:33 05/15/17 03:33 <Ranjeet Cadet - Last Filed: 05/15/17 19:39> Medical Decision Making - Medical Decision Making 05/15/17 19:39 rescribedDr. Helio: The scribe's documentation has been prepared under my direction and personally reviewed by me in its entirery. I confirm that the note above accurately reflects all work, treatment, procedures, and medical decision making performed by me. <Ranjeet Cadet - Last Filed: 05/15/17 19:39> *DC/Admit/Observation/Transfer - Attestations Scribe Attestion: 05/15/17 02:48 Documentation prepared by Sun Mcgrath, acting as medical affairs leader for Ranjeet Cadet DO <Sun Mcgrath - Last Filed: 05/15/17 02:46> - Discharge Dispostion Admit: No <Ranjeet Cadet - Last Filed: 05/15/17 19:39> Diagnosis at time of Disposition: Abdominal pain - Discharge Dispostion Disposition: HOME Condition at time of disposition: Good - Prescriptions Prescriptions: Ondansetron [Zofran *Odt*] 8 mg SL BID PRN #10 od.tablet PRN Reason: Nausea And/Or Vomiting - Referrals Referrals: Honorio Mcdaniels MD [Primary Care Provider] - - Patient Instructions Printed Discharge Instructions: DI for Abdominal Pain-Adult Additional Instructions: Drink plenty of fluid to stay hydrated. If you experience worsening pain, vomiting, or any other concerning symptoms, return to the ER immediately. Otherwise, follow up with your primary doctor within 1 week.
[2017-05-15] MEDS ORDERED: SODIUM CHLORIDE 1,000 ML IV STA ×2 (02:42→06:10)
[2017-05-15 02:43] VITALS: BMI 41.3
[2017-05-15] MEDS ORDERED: ONDANSETRON 4 MG/2 ML VIAL ONE ×3 (03:08→09:02)
[2017-05-15] MEDS ORDERED: KETOROLAC TROMETHAMINE 30 MG/1 ML VIAL ONE (03:08)
[2017-05-15 03:49] LABS: BASO % 0.1 % (0-2.0); EOS % 0.1 % (0-4.5); HEMATOCRIT 44.1 % (35.4-49); HEMOGLOBIN 15.3 GM/dL (11.7-16.9); LYMPH % 5.7 % (8-40); MCH 31.2 pg (25.7-33.7); MCHC 34.7 g/dl (32.0-35.9); MEAN CELL VOLUME 90.1 fl (80-96); MEAN PLT VOLUME 7.8 fl (7.5-11.1); MONO % 8.4 % (3.8-10.2); NEUT % 85.7 % (42.8-82.8); PLATELET COUNT 210 K/MM3 (134-434); RBC 4.89 M/mm3 (4.00-5.60); RDW 13.7 % (11.9-15.9); WHITE BLOOD COUNT 6.8 K/mm3 (4.0-10.0)
[2017-05-15 04:00] LABS: INR 0.95 (0.82-1.09); PROTHROMBIN TIME (PATIENT) 10.7 SEC (9.98-11.88)
[2017-05-15 04:10] LABS: ALBUMIN 3.5 g/dl (3.4-5.0); ANION GAP 8 (8-16); BILIRUBIN,TOTAL 0.5 mg/dL (0.2-1.0); BLOOD UREA NITROGEN 15 mg/dL (7-18); CALCIUM 8.6 mg/dL (8.5-10.1); CHLORIDE 98 mmol/L (98-107); CO2 29 mmol/L (21-32); CREATININE 0.9 mg/dL (0.7-1.3); GLUCOSE,RANDOM 100 mg/dL (74-106); LIPASE 59 U/L (73-393); MAGNESIUM 1.7 mg/dL (1.8-2.4); POTASSIUM 3.9 mmol/L (3.5-5.1); SGOT/AST 20 U/L (15-37); SGPT/ALT 22 U/L (12-78); SODIUM 135 mmol/L (136-145); TOT PROT 7.6 g/dl (6.4-8.2)
[2017-05-15 04:14] LABS: ALK PHOS 156 U/L (45-117)
[2017-05-15 04:18] LABS: URINE APPEARANCE CLEAR; URINE BILIRUBIN NEGATIVE (NEGATIVE); URINE BLOOD NEGATIVE (NEGATIVE); URINE COLOR YELLOW; URINE GLUCOSE (UA) NEGATIVE (NEGATIVE); URINE KETONE NEGATIVE (NEGATIVE); URINE LEUK ESTERASE NEGATIVE (NEGATIVE); URINE NITRITE NEGATIVE (NEGATIVE); URINE PROTEIN NEGATIVE (NEGATIVE); URINE UROBILINOGEN NEGATIVE mg/dL (0.2-1.0)
[2017-05-15 04:29] LABS: COCAINE, UR NEGATIVE ng/ml (CUTOFF=300); METHADONE, UR NEGATIVE ng/ml (CUTOFF=300); OPIATES, URI NEGATIVE ng/ml (CUTOFF=300); PHENCYCLIDINE,URINE NEGATIVE ng/ml (CUTOFF=25); URINE AMPHETAMINES NEGATIVE ng/ml (CUTOFF=500); URINE BARBITURATES NEGATIVE ng/ml (CUTOFF=200); URINE BENZODIAZEPINES POSITIVE ng/ml (CUTOFF=200)
[2017-05-15] MEDS ORDERED: ONDANSETRON 4 MG/2 ML VIAL IVPUSH ONE (09:01)
--- NOTE | 2017-05-15 09:55 | PDOC ---
*Physical Exam - Vital Signs Last Vital Signs Temp Pulse Resp BP Pulse Ox 98.2 F 84 18 118/75 96 05/15/17 02:33 05/15/17 06:40 05/15/17 06:40 05/15/17 06:40 05/15/17 06:40 ED Treatment Course - LABORATORY CBC & Chemistry Diagram: 05/15/17 03:33 05/15/17 03:33 - ADDITIONAL ORDERS Additional order review: Laboratory Results 05/15/17 05/15/17 05/15/17 04:00 04:00 03:33 PT with INR INR Sodium Potassium Chloride Carbon Dioxide Anion Gap BUN Creatinine Creat Clearance w eGFR Random Glucose Calcium Magnesium Total Bilirubin AST ALT Alkaline Phosphatase Creatine Kinase Creatine Kinase Index CK-MB (CK-2) Troponin I Total Protein Albumin Lipase Urine Color Yellow Urine Appearance Clear Urine pH 6.0 Ur Specific [place] 1.025 Urine Protein Negative Urine Glucose (UA) Negative Urine Ketones Negative Urine Blood Negative Urine Nitrite Negative Urine Bilirubin Negative Urine Urobilinogen Negative Ur Leukocyte Esterase Negative Opiates Screen Negative Methadone Screen Negative Barbiturate Screen Negative Phencyclidine Screen Negative Ur Amphetamines Screen Negative MDMA (Ecstasy) Screen Negative Benzodiazepines Screen Positive Cocaine Screen Negative U Marijuana (THC) Screen Negative Alcohol, Quantitative < 5.0 05/15/17 05/15/17 03:33 03:33 PT with INR 10.70 INR 0.95 Sodium 135 L Potassium 3.9 Chloride 98 Carbon Dioxide 29 Anion Gap 8 BUN 15 Creatinine 0.9 Creat Clearance w eGFR > 60 Random Glucose 100 D Calcium 8.6 Magnesium 1.7 L Total Bilirubin 0.5 D AST 20 D ALT 22 D Alkaline Phosphatase 156 H Creatine Kinase 169 Creatine Kinase Index 0.5 CK-MB (CK-2) < 1.000 Troponin I < 0.02 Total Protein 7.6 Albumin 3.5 Lipase 59 L Urine Color Urine Appearance Urine pH Ur Specific [place] Urine Protein Urine Glucose (UA) Urine Ketones Urine Blood Urine Nitrite Urine Bilirubin Urine Urobilinogen Ur Leukocyte Esterase Opiates Screen Methadone Screen Barbiturate Screen Phencyclidine Screen Ur Amphetamines Screen MDMA (Ecstasy) Screen Benzodiazepines Screen Cocaine Screen U Marijuana (THC) Screen Alcohol, Quantitative 05/15/17 03:45 Influenza Types A,B Antigen (SUNI) - Final Nasopharyngeal Swab - Final 05/15/17 03:33 RBC 4.89 MCV 90.1 MCHC 34.7 RDW 13.7 MPV 7.8 Neutrophils % 85.7 H Lymphocytes % 5.7 L Monocytes % 8.4 Eosinophils % 0.1 Basophils % 0.1 - RADIOLOGY Radiology Studies Ordered: Category Date Time Status ABDOMEN & PELVIS CT WITH CONTR [CT] Stat CT Scan 05/15/17 07:35 Taken - Medications Given in the ED: ED Medications Discontinued Medications Generic Name Dose Route Start Last Admin Trade Name Freq PRN Reason Stop Dose Admin Sodium Chloride 1,000 mls @ 1,000 mls/hr 05/15/17 02:42 05/15/17 03:30 Normal Saline - IV 05/15/17 03:41 1,000 mls/hr ASDIR STA Administration Sodium Chloride 1,000 mls @ 1,000 mls/hr 05/15/17 06:10 05/15/17 06:23 Normal Saline - IV 05/15/17 07:09 1,000 mls/hr ASDIR STA Administration Ketorolac Tromethamine 30 mg 05/15/17 02:41 05/15/17 03:30 Toradol Injection - IVPUSH 05/15/17 02:42 30 mg ONCE ONE Administration Ondansetron HCl 4 mg 05/15/17 02:41 05/15/17 03:30 Zofran Injection IVPUSH 05/15/17 02:42 4 mg ONCE STA Administration Ondansetron HCl 4 mg 05/15/17 06:10 05/15/17 06:24 Zofran Injection IVPUSH 05/15/17 06:11 4 mg ONCE STA Administration Ondansetron HCl 4 mg 05/15/17 09:01 05/15/17 09:05 Zofran Injection IVPUSH 05/15/17 09:02 4 mg ONCE ONE Administration Medical Decision Making - Medical Decision Making 05/15/17 09:53 36 M with N/V/D, abdominal pain. Found to have LLQ tenderness on exam. - CTAP unremarkable. - Labs wnl Pt reassessed - now tolerating PO. Vitals wnl. Pt well appearing, clinically stable for DC. I discussed the physical exam findings, ancillary test results and final diagnoses with the patient. I answered all of the patient's questions. The patient was satisfied with the care received and felt comfortable with the discharge plan and treatment plan. The patient agrees to follow up with the primary care physician within 24-72 hours. *DC/Admit/Observation/Transfer Diagnosis at time of Disposition: Abdominal pain - Discharge Dispostion Disposition: HOME Condition at time of disposition: Good - Prescriptions Prescriptions: Ondansetron [Zofran *Odt*] 8 mg SL BID PRN #10 od.tablet PRN Reason: Nausea And/Or Vomiting - Referrals Referrals: Honorio Mcdaniels MD [Primary Care Provider] - - Patient Instructions Printed Discharge Instructions: DI for Abdominal Pain-Adult Additional Instructions: Drink plenty of fluid to stay hydrated. If you experience worsening pain, vomiting, or any other concerning symptoms, return to the ER immediately. Otherwise, follow up with your primary doctor within 1 week. - Post Discharge Activity - Attestations Physician Attestion: 05/15/17 09:55 I, Dr. Sujit nAgel MD, attest that this document has been prepared under my direction and personally reviewed by me in its entirety. I further attest, that it accurately reflects all work, treatment, procedures and medical decision -making performed by me.
[2017-05-15] MEDS ORDERED: METOCLOPRAMIDE HCL INJECTION 10 MG/2 ML VIAL IVPUSH ONE (10:00)
[2017-05-15] MEDS ORDERED: METOCLOPRAMIDE HCL INJECTION 10 MG/2 ML VIAL ONE (10:23)
[2017-05-15 11:21] VITALS: BP 131/76; PULSE 70; TEMP 98.5
== END 2017-05-15 11:21 | disposition home or self-care (01) ==
LOC: JER 02:05
PROC: 3E0337Z Introduction of Electrolytic and Water Balance Substance into Peripheral Vein, Percutaneous Approach (ICD-10-PCS; principal; 2017-05-15)
PROC: 3E033GC Introduction of Other Therapeutic Substance into Peripheral Vein, Percutaneous Approach (ICD-10-PCS; 2017-05-15)
PROC: 3E033GC Introduction of Other Therapeutic Substance into Peripheral Vein, Percutaneous Approach (ICD-10-PCS; 2017-05-15)
PROC: 3E0333Z Introduction of Anti-inflammatory into Peripheral Vein, Percutaneous Approach (ICD-10-PCS; 2017-05-15)
PROC: 3E033GC Introduction of Other Therapeutic Substance into Peripheral Vein, Percutaneous Approach (ICD-10-PCS; 2017-05-15)
DX: R10.32 Left lower quadrant pain (principal); J45.909 Unspecified asthma, uncomplicated; G40.509 Epileptic seizures related to external causes, not intractable, without status epilepticus; F32.9 Major depressive disorder, single episode, unspecified; F10.10 Alcohol abuse, uncomplicated; F10.20 Alcohol dependence, uncomplicated; F17.210 Nicotine dependence, cigarettes, uncomplicated
CPT/HCPCS: 36415; 74177-TC; 80053; 80307; 81003; 82550; 82553; 83690; 83735; 84484; 85025; 85610; 87804; 99285-25